=== PATIENT | female | born 1945 | race Hispanic/Latino ===

== ENCOUNTER 2017-07-02 08:32 | Day surgery (SDC) | payer MEDICARE ==
[2017-07-01 09:24] VITALS: BP 148/59
[2017-07-01 11:04] LABS: CREATININE 0.7 mg/dL (0.5-1.5); POTASSIUM 4.3 mmol/L (3.5-5.1)
[2017-07-01 11:18] LABS: ALBUMIN 2.4 g/dL (3.5-5.0); BILIRUBIN,TOTAL 5.4 mg/dL (0.2-1.0); TOTAL PROTEIN, SERUM 6.7 g/dL (6.0-8.3)
[~2017-07-02] VITALS: Ht 152.4 cm; Wt 64.9 kg
[~2017-07-02 08:32] MED LIST: ASPI-555 PO; CALCIUM PO; CHOL400C9 PO; DEXT1DRO OP; DULO30CA51 PO; FISH OIL PO; HUMALOG SQ; HYDR-4154 PO; INDOMETHACIN 50 MG SUPP.RECT RC SCH; INSLAN SQ; ISOS60TA4 PO; ISOVUE-370 50ML VIAL IV ONE; MELA5CAP PO; METF500T6 PO; MORP60 PO; NITR0.4T50 SL; OMEP20CA10 PO; PIOG1TAB36 PO; SODIUM CHLORIDE 0.9% 1000ML 1,000 ML IV ONE; TRAM50TA4 PO
[2017-07-02] MEDS ORDERED: ISOVUE-370 50ML VIAL IV ONE (08:53)
[2017-07-02] MEDS ORDERED: PROPOFOL 10 MG/ML 20ML VIAL IV ONE (10:06)
[2017-07-02] MEDS ORDERED: FENTANYL CITRATE PF 50 MCG/1 ML 2ML VIAL ONE (10:06)
[2017-07-02] MEDS ORDERED: LIDOCAINE HCL 2% 20ML ONE (10:07)
[2017-07-02] MEDS ORDERED: GLYCOPYRROLATE 0.2 MG/ML 5 ML VIAL ONE (10:10)
[2017-07-02 10:14] VITALS: BP 148/59
[2017-07-02] MEDS ORDERED: GLUCAGON 1MG KIT 1 MG ML ONE (11:08)
[2017-07-02 11:50] VITALS: BP 99/48
[2017-07-02 11:55] VITALS: BP 120/55
[2017-07-02 12:00] VITALS: BP 130/59
== END 2017-07-02 13:15 ==
LOC: DAH 08:32 → ENDO 08:32
PROVIDERS: ATTEND Internal Medicine
DX: D49.0 Neoplasm of unspecified behavior of digestive system (principal); K83.8 Other specified diseases of biliary tract; K86.89 Other specified diseases of pancreas; K83.1 Obstruction of bile duct; E78.5 Hyperlipidemia, unspecified; J45.909 Unspecified asthma, uncomplicated; M19.90 Unspecified osteoarthritis, unspecified site; Z90.49 Acquired absence of other specified parts of digestive tract; Z98.890 Other specified postprocedural states; Z79.899 Other long term (current) drug therapy; I12.9 Hypertensive chronic kidney disease with stage 1 through stage 4 chronic kidney disease, or unspecified chronic kidney disease; E11.22 Type 2 diabetes mellitus with diabetic chronic kidney disease; N18.9 Chronic kidney disease, unspecified; Z79.4 Long term (current) use of insulin; Z79.84 Long term (current) use of oral hypoglycemic drugs
CPT/HCPCS: 36415; 43238; 43274; 74330; 80053; 82948; 88104; 88305; 93005; A4215; A4606; C1769; C2625; J1610; J2704; J3010; J3490 ×2; Q9967; 43232; J7030